=== PATIENT | female | born 1965 | race Caucasian/White ===

== ENCOUNTER 2017-11-23 09:16 | Outpatient (CLI) | payer OTHER ==
[2017-11-23] MEDS ORDERED: ISOVUE-370 76%-LOCM 1 ML ONE (11:39)
== END 2017-11-23 09:17 | disposition home or self-care (01) ==
LOC: BICCT 09:16
PROVIDERS: ATTEND Surgery
DX: K43.2 Incisional hernia without obstruction or gangrene (principal); Z90.49 Acquired absence of other specified parts of digestive tract
CPT/HCPCS: 74177

== ENCOUNTER 2018-02-01 14:31 | Outpatient (CLI) | payer OTHER | END 2018-02-01 14:32 | disposition home or self-care (01) | LOC: BICRAD 14:31 | PROVIDERS: ATTEND Family Medicine | DX: M25.551 Pain in right hip (principal); M16.11 Unilateral primary osteoarthritis, right hip ==

== ENCOUNTER 2018-02-23 13:59 | Day surgery (SDC) | payer OTHER ==
[2018-02-22 14:19] VITALS: BMI 44.5
[~2018-02-23 13:59] MED LIST: Glycopyrrolate 0.2 MG/ML 5 ML SYRINGE ONE; Lidocaine 1% PF 5 ML VIAL ONE; Ondansetron HCl/PF 4 MG/2 ML Vial ONE; PROPOFOL 200 MG/20 ML VIAL ONE; Succinylcholine Chloride 20 MG/ML 10 ml SYRINGE FS ONE
[2018-02-23] MEDS ORDERED: EPINEPHrine 1 MG/ML AMP ONE (14:28)
[2018-02-23] MEDS ORDERED: Fentanyl 100 MCG/2 ML VIAL ONE ×3 (14:30→17:37)
[2018-02-23] MEDS ORDERED: Midazolam HCl 2 mg/2 ml Vial ONE (14:30)
[2018-02-23] MEDS ORDERED: Ondansetron HCl/PF 4 MG/2 ML Vial ONE (14:31)
[2018-02-23 15:01] LABS: Anion Gap 9 mmol/L (10-20); BUN (Urea Nitrogen) 12 mg/dL (9.8-20.1); Calc. Creatinine Clearance 104 mL/min (70-130); Calcium 9.8 mg/dL (7.8-10.44); Carbon Dioxide 31 mmol/L (22-29); Chloride 101 mmol/L (98-107); Estimated GFR-MDRD 57; Glucose 100 mg/dL (70-105); Potassium 4.5 mmol/L (3.5-5.1); Sodium 136 mmol/L (136-145)
[2018-02-23] MEDS ORDERED: Propofol 500 MG/50 ML VIAL ONE (16:04)
[2018-02-23] MEDS ORDERED: Sodium Chloride For Inhalation 0.9% 3 ML NEB ONE (16:33)
--- NOTE | 2018-02-23 17:42 | RAD ---
AP VIEW CHEST: Date: 02/23/18 INDICATION: Preop. COMPARISON: Prior exam dated 04/28/16. FINDINGS: Stable mild cardiomegaly. Lungs are clear. No pleural effusion or pneumothorax evident. No acute osse ous abnormality is evident. IMPRESSION: Stable cardiomegaly. POS: [facility]
[2018-02-23] MEDS ORDERED: Hydrocodone-Acetamin 15 ML UDCUP ONE (18:11)
--- NOTE | 2018-02-23 20:32 | EKG ---
Test Reason : PREOP Blood Pressure : / mmHG Vent. Rate : 067 BPM Atrial Rate : 067 BPM P-R Int : 160 ms QRS Dur : 080 ms QT Int : 450 ms P-R-T Axes : 054 037 054 degrees QTc Int : 475 ms Normal sinus rhythm Normal ECG No previous ECGs available Confirmed by DR. Isabella RAMIREZ MD ([id number]) on 02/23/2018 8:32:17 PM Referred By: ERUM Confirmed By:DR. Isabella RAMIREZ MD
--- NOTE | 2018-02-24 12:44 | OP ---
PREOPERATIVE DIAGNOSES: Hoarseness and bilateral vocal cord lesions. POSTOPERATIVE DIAGNOSES: Hoarseness and bilateral vocal cord lesions. PROCEDURES PERFORMED: 1. Microsuspension laryngoscopy with vocal fold biopsy. 2. Rigid esophagoscopy. PROCEDURE IN DETAIL: After consent was obtained, the patient was identified, brought to the operatin g room and placed on the operating table in supine position. General endotracheal anesthesia was obt ained with the Ruth jet ventilating tube and the patient was positioned for surgery. The orophar yngeal exposure was obtained and the laryngoscope was placed. Oral cavity was systematically evaluat ed as was the oropharynx. Everything was found to be within normal limits. Hypopharyngeal examinati on is similar and was within normal limits except for some significant edema at the esophageal inlet. 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 Micro cups were used to obtain biopsies bilaterally and photograph s were obtained before and after the biopsies. The specimens were sent for histologic evaluation. T his included both anterior portions of the vocal cord, including the commissure. We removed the vini ngoscope and we proceeded with rigid esophagoscopy. The esophagus was examined all the way down to t he gastric inlet and no significant mucosal abnormalities were found and no evidence of hiatal hernia or reflux. The esophagoscope was removed. The patient was awakened, reintubated with a normal endo tracheal tube and awakened and taken to recovery room in a stable condition prior to discharge home.
== END 2018-02-23 18:50 | disposition home or self-care (01) ==
LOC: SDC 13:59
PROVIDERS: ATTEND Specialist
PROC: 0DJ08ZZ Inspection of Upper Intestinal Tract, Via Natural or Artificial Opening Endoscopic (ICD-10-PCS; principal; 2018-02-23)
PROC: 0CBT8ZX Excision of Right Vocal Cord, Via Natural or Artificial Opening Endoscopic, Diagnostic (ICD-10-PCS; principal; 2018-02-23)
PROC: 0CBV8ZX Excision of Left Vocal Cord, Via Natural or Artificial Opening Endoscopic, Diagnostic (ICD-10-PCS; principal; 2018-02-23)
DX: J38.7 Other diseases of larynx (principal); J45.909 Unspecified asthma, uncomplicated; F17.210 Nicotine dependence, cigarettes, uncomplicated; Z79.899 Other long term (current) drug therapy; Z91.018 Allergy to other foods
CPT/HCPCS: 36415; 71045; 80048; 85014; 88305; 93005; 93010; 96374; J0171; J2001; J2250; J2405; J2704; J3010; J7620

== ENCOUNTER 2022-08-17 10:44 | Inpatient (IN) | payer MEDICARE, OTHER ==
[2022-08-17 11:27] LABS: #Lymphocytes 0.5 thou/uL (1.20-3.40); #Monocytes 0.3 thou/uL (0.11-0.59); #Neutrophils 7.2 thou/uL (1.40-6.50); %Basophils 0.2 % (0.0-1.0); %Eosinophils 0.2 % (0.0-10.0); %Lymphocytes 6.5 % (21.0-51.0); %Monocytes 3.9 % (0.0-10.0); %Neutrophils 89.2 % (42.0-75.0); Hemoglobin 13.6 g/dL (12.0-16.0); Mean Corpuscular HGB CONC 32.2 g/dL (32.0-36.0); Mean Corpuscular Hemoglobin 28.5 pg (27.0-31.0); Mean Corpuscular Volume 88.5 fl (78.0-98.0); Mean Platelet Volume 8.4 fL (7.4-10.4); Platelet Count 236 10x3/uL (130-400); RBC Distribution Width 14.9 % (11.5-14.5); Red Blood Cell (RBC) Count 4.76 mill/uL (4.20-5.40)
[2022-08-17] MEDS ORDERED: Albuterol Sulfate 2.5 mg/0.5 ml Neb ONE ×3 (11:33→14:06)
[2022-08-17] MEDS ORDERED: methylPREDNISolone Sod Succ/PF 125 MG/2 ML VIAL ONE (11:42)
[2022-08-17 11:46] LABS: ALT (SGPT) 24 U/L (8-55); AST (SGOT) 31 U/L (5-34); Albumin 4.4 g/dL (3.5-5.0); Alkaline Phosphatase 97 U/L (40-110); Anion Gap 19 mmol/L (10-20); BUN (Urea Nitrogen) 18 mg/dL (9.8-20.1); Bilirubin, Total 0.8 mg/dL (0.2-1.2); Calc. Creatinine Clearance 0 mL/min (70-130); Calcium 9.2 mg/dL (7.8-10.44); Carbon Dioxide 21 mmol/L (22-29); Chloride 100 mmol/L (98-107); Estimated GFR 42; Globulin 3.5 g/dL (2.4-3.5); Glucose 138 mg/dL (70-105); Potassium 4.6 mmol/L (3.5-5.1); Protein, Total 7.9 g/dL (6.0-8.3); Sodium 135 mmol/L (136-145)
[2022-08-17] MEDS ORDERED: Magnesium 2 GM/50 ML BAG (IN WATER) ONE (11:48)
[2022-08-17] MEDS ORDERED: Acetaminophen 500 MG TAB ONE (12:02)
[2022-08-17 12:07] LABS: CKMB 4.5 ng/mL (0-6.6)
[2022-08-17] MEDS ORDERED: Albuterol Sulfate 2.5 mg/3 ml Neb ONE (12:50)
[2022-08-17 15:08] LABS: SARS-CoV-2 NAA Rapid Test Not Detected (NotDetected)
[2022-08-17] MEDS ORDERED: Senokot S 8.6-50 MG TAB PO PRN (15:55)
[2022-08-17] MEDS ORDERED: Acetaminophen 325 MG TAB PO PRN (15:55)
[2022-08-17] MEDS ORDERED: Furosemide 40 MG/4 ML VIAL SLOW IVP SCH (16:00)
[2022-08-17] MEDS: cefTRIAXone\\ROCEPHIN 1 GM in Sodium Chloride 0.9% 100 ML IVPB SCH (17:00)
[2022-08-17 17:29] LABS: Calcium 9.1 mg/dL (7.8-10.44); Magnesium 2.4 mg/dL (1.6-2.6)
[2022-08-17] MEDS ORDERED: cefTRIAXone\\ROCEPHIN 1 GM VIAL ONE (17:39)
[2022-08-17] MEDS ORDERED: HYDROcodone/Acetaminophen 7.5/325 mg Tablet ONE (19:46)
[2022-08-17] MEDS: HYDROcodone/Acetaminophen 7.5/325 mg Tablet PO PRN (19:48)
[2022-08-17] MEDS ORDERED: traZODone HCl 50 MG TAB ONE (20:59)
[2022-08-17] MEDS ORDERED: Famotidine/PF 20 mg/2ml Vial ONE (20:59)
[2022-08-17] MEDS ORDERED: Carvedilol 3.125 MG TAB PO SCH (21:00)
[2022-08-17] MEDS ORDERED: Heparin 10,000 UNITS/ 10 ML VIAL ONE (21:29)
[2022-08-17] MEDS: Doxycycline 100 MG CAP PO SCH (22:09)
[2022-08-17] MEDS: Famotidine/PF 20 mg/2ml Vial SLOW IVP SCH (22:09)
[2022-08-17] MEDS: Carvedilol 3.125 MG TAB PO SCH (22:09)
[2022-08-17] MEDS: traZODone HCl 50 MG TAB PO SCH (22:10)
[2022-08-17] MEDS: methylPREDNISolone Sod Succ 40 MG VIAL IVP SCH (22:10)
[2022-08-17] MEDS: Heparin 5,000 UNITS/ML VIAL SC SCH (22:10)
[2022-08-17] MEDS ORDERED: methylPREDNISolone Sod Succ 40 MG VIAL ONE (22:17)
[2022-08-17 22:43] LABS: Troponin I 0.093 ng/mL (< 0.028)
[2022-08-18 00:08] VITALS: BMI 44.6
[2022-08-18] MEDS: HYDROcodone/Acetaminophen 7.5/325 mg Tablet PO PRN (04:57)
[2022-08-18] MEDS: methylPREDNISolone Sod Succ 40 MG VIAL IVP SCH ×3 (04:58→20:40)
[2022-08-18 04:59] LABS: #Lymphocytes 0.6 thou/uL (1.20-3.40); #Monocytes 0.2 thou/uL (0.11-0.59); #Neutrophils 4.8 thou/uL (1.40-6.50); %Basophils 0.3 % (0.0-1.0); %Eosinophils 0.2 % (0.0-10.0); %Lymphocytes 9.9 % (21.0-51.0); %Monocytes 2.7 % (0.0-10.0); %Neutrophils 86.9 % (42.0-75.0); Hemoglobin 11.3 g/dL (12.0-16.0); Mean Corpuscular HGB CONC 32.3 g/dL (32.0-36.0); Mean Corpuscular Hemoglobin 28.6 pg (27.0-31.0); Mean Corpuscular Volume 88.3 fl (78.0-98.0); Mean Platelet Volume 8.1 fL (7.4-10.4); Platelet Count 215 10x3/uL (130-400); RBC Distribution Width 14.9 % (11.5-14.5); Red Blood Cell (RBC) Count 3.94 mill/uL (4.20-5.40); White Blood Cell (WBC) Count 5.5 10x3/uL (4.8-10.8)
[2022-08-18] MEDS: Guaifenesin DM 100-10/5 ML UDCUP PO PRN ×3 (05:05→20:41)
[2022-08-18 05:17] LABS: ALT (SGPT) 30 U/L (8-55); AST (SGOT) 40 U/L (5-34); Albumin 3.9 g/dL (3.5-5.0); Alkaline Phosphatase 79 U/L (40-110); Anion Gap 15 mmol/L (10-20); BUN (Urea Nitrogen) 24 mg/dL (9.8-20.1); Bilirubin, Total 0.5 mg/dL (0.2-1.2); Calc. Creatinine Clearance 71 mL/min (70-130); Carbon Dioxide 24 mmol/L (22-29); Chloride 101 mmol/L (98-107); Estimated GFR 43; Globulin 3.1 g/dL (2.4-3.5); Glucose 128 mg/dL (70-105); Sodium 135 mmol/L (136-145)
[2022-08-18] MEDS ORDERED: Non-Formulary Item 1 EACH (Tiotropium [Spiriva Handihaler] 18 MCG Box) INH SCH (09:00)
[2022-08-18] MEDS: Doxycycline 100 MG CAP PO SCH ×2 (09:38→20:40)
[2022-08-18] MEDS: Carvedilol 3.125 MG TAB PO SCH ×2 (09:38→20:40)
[2022-08-18] MEDS: Aspirin Chewable 81 MG TAB PO SCH (09:38)
[2022-08-18] MEDS: Lisinopril 10 MG TAB PO SCH (09:38)
[2022-08-18] MEDS: Heparin 5,000 UNITS/ML VIAL SC SCH ×3 (09:38→20:40)
[2022-08-18] MEDS: Famotidine/PF 20 mg/2ml Vial SLOW IVP SCH ×2 (09:38→20:40)
[2022-08-18] MEDS: Furosemide 40 MG/4 ML VIAL SLOW IVP SCH (09:38)
[2022-08-18] MEDS: cefTRIAXone\\ROCEPHIN 1 GM in Sodium Chloride 0.9% 100 ML IVPB SCH (17:00)
[2022-08-18] MEDS: Nicotine 21 MG PATCH TD SCH (17:50)
[2022-08-18] MEDS: traZODone HCl 50 MG TAB PO SCH (20:40)
[2022-08-19] MEDS: Guaifenesin DM 100-10/5 ML UDCUP PO PRN ×4 (00:54→21:19)
[2022-08-19 04:16] LABS: #Lymphocytes 0.8 thou/uL (1.20-3.40); #Monocytes 0.3 thou/uL (0.11-0.59); #Neutrophils 7.7 thou/uL (1.40-6.50); %Eosinophils 0.1 % (0.0-10.0); %Lymphocytes 9.5 % (21.0-51.0); %Monocytes 3.1 % (0.0-10.0); %Neutrophils 87.2 % (42.0-75.0); Hemoglobin 10.8 g/dL (12.0-16.0); Mean Corpuscular HGB CONC 31.6 g/dL (32.0-36.0); Mean Corpuscular Hemoglobin 28.3 pg (27.0-31.0); Mean Corpuscular Volume 89.6 fl (78.0-98.0); Mean Platelet Volume 8.6 fL (7.4-10.4); Platelet Count 234 10x3/uL (130-400); RBC Distribution Width 14.8 % (11.5-14.5); Red Blood Cell (RBC) Count 3.82 mill/uL (4.20-5.40); White Blood Cell (WBC) Count 8.9 10x3/uL (4.8-10.8)
[2022-08-19 04:41] LABS: Anion Gap 10 mmol/L (10-20); BUN (Urea Nitrogen) 39 mg/dL (9.8-20.1); Calc. Creatinine Clearance 53 mL/min (70-130); Carbon Dioxide 30 mmol/L (22-29); Chloride 101 mmol/L (98-107); Estimated GFR 31; Glucose 119 mg/dL (70-105); Potassium 5.5 mmol/L (3.5-5.1); Sodium 135 mmol/L (136-145)
[2022-08-19] MEDS: methylPREDNISolone Sod Succ 40 MG VIAL IVP SCH ×3 (05:29→21:19)
[2022-08-19] MEDS: Doxycycline 100 MG CAP PO SCH ×2 (09:29→21:20)
[2022-08-19] MEDS: Lisinopril 10 MG TAB PO SCH (09:29)
[2022-08-19] MEDS: Carvedilol 3.125 MG TAB PO SCH ×2 (09:29→21:20)
[2022-08-19] MEDS: Aspirin Chewable 81 MG TAB PO SCH (09:29)
[2022-08-19] MEDS: Famotidine/PF 20 mg/2ml Vial SLOW IVP SCH (09:30)
[2022-08-19] MEDS: Furosemide 40 MG/4 ML VIAL SLOW IVP SCH (09:31)
[2022-08-19] MEDS: Heparin 5,000 UNITS/ML VIAL SC SCH ×3 (09:33→21:20)
[2022-08-19] MEDS: HYDROcodone/Acetaminophen 7.5/325 mg Tablet PO PRN ×3 (09:40→21:20)
[2022-08-19] MEDS ORDERED: Lisinopril 10 MG TAB PO SCH (13:23)
[2022-08-19] MEDS: cefTRIAXone\\ROCEPHIN 1 GM in Sodium Chloride 0.9% 100 ML IVPB SCH (15:06)
[2022-08-19] MEDS: Nicotine 21 MG PATCH TD SCH (17:37)
[2022-08-19] MEDS ORDERED: Famotidine/PF 20 mg/2ml Vial SLOW IVP SCH (21:00)
[2022-08-19] MEDS: traZODone HCl 50 MG TAB PO SCH (21:21)
[2022-08-20 04:41] LABS: #Lymphocytes 0.8 thou/uL (1.20-3.40); #Monocytes 0.2 thou/uL (0.11-0.59); #Neutrophils 6.1 thou/uL (1.40-6.50); %Basophils 0.1 % (0.0-1.0); %Eosinophils 0.1 % (0.0-10.0); %Lymphocytes 11.4 % (21.0-51.0); %Monocytes 2.6 % (0.0-10.0); %Neutrophils 85.8 % (42.0-75.0); Hemoglobin 11.7 g/dL (12.0-16.0); Mean Corpuscular HGB CONC 31.4 g/dL (32.0-36.0); Mean Corpuscular Hemoglobin 28.5 pg (27.0-31.0); Mean Corpuscular Volume 90.6 fl (78.0-98.0); Mean Platelet Volume 8.8 fL (7.4-10.4); Platelet Count 235 10x3/uL (130-400); Red Blood Cell (RBC) Count 4.12 mill/uL (4.20-5.40); White Blood Cell (WBC) Count 7.1 10x3/uL (4.8-10.8)
[2022-08-20] MEDS: methylPREDNISolone Sod Succ 40 MG VIAL IVP SCH (05:14)
[2022-08-20 05:15] LABS: Anion Gap 15 mmol/L (10-20); BUN (Urea Nitrogen) 57 mg/dL (9.8-20.1); Calc. Creatinine Clearance 48 mL/min (70-130); Calcium 8.8 mg/dL (7.8-10.44); Carbon Dioxide 28 mmol/L (22-29); Chloride 101 mmol/L (98-107); Estimated GFR 27; Glucose 125 mg/dL (70-105); Potassium 4.6 mmol/L (3.5-5.1); Sodium 139 mmol/L (136-145)
[2022-08-20] MEDS: Cefdinir 300 MG CAP PO SCH ×2 (09:30→20:35)
[2022-08-20] MEDS: Aspirin Chewable 81 MG TAB PO SCH (09:30)
[2022-08-20] MEDS: Carvedilol 3.125 MG TAB PO SCH ×2 (09:30→20:35)
[2022-08-20] MEDS: Lisinopril 10 MG TAB PO SCH (09:30)
[2022-08-20] MEDS: Guaifenesin DM 100-10/5 ML UDCUP PO PRN ×2 (09:31→20:36)
[2022-08-20] MEDS: Furosemide 40 MG/4 ML VIAL SLOW IVP SCH (09:31)
[2022-08-20] MEDS: Heparin 5,000 UNITS/ML VIAL SC SCH ×3 (09:39→20:35)
[2022-08-20] MEDS: HYDROcodone/Acetaminophen 7.5/325 mg Tablet PO PRN ×2 (11:19→20:35)
[2022-08-20] MEDS: Nicotine 21 MG PATCH TD SCH (17:45)
[2022-08-20] MEDS: traZODone HCl 50 MG TAB PO SCH (20:35)
[2022-08-20] MEDS ORDERED: Famotidine 20 MG TAB PO SCH (21:00)
[2022-08-21] MEDS: Guaifenesin DM 100-10/5 ML UDCUP PO PRN (00:42)
[2022-08-21] MEDS ORDERED: Furosemide 40 MG TAB PO SCH (07:30)
[2022-08-21] MEDS ORDERED: predniSONE 50 MG TAB PO SCH (08:00)
[2022-08-21] MEDS: Carvedilol 3.125 MG TAB PO SCH (09:18)
[2022-08-21] MEDS: Aspirin Chewable 81 MG TAB PO SCH (09:18)
[2022-08-21] MEDS: Lisinopril 10 MG TAB PO SCH (09:19)
[2022-08-21] MEDS: Cefdinir 300 MG CAP PO SCH (09:19)
[2022-08-21] MEDS: Heparin 5,000 UNITS/ML VIAL SC SCH ×2 (09:21→14:46)
[2022-08-21 13:37] VITALS: TEMP 96.5
[2022-08-21] MEDS ORDERED: Calcium Carbonate 500 MG ChewTAB PO PRN (14:47)
[2022-08-21 17:31] VITALS: BP 142/77
[2022-08-21] MEDS: Nicotine 21 MG PATCH TD SCH (18:08)
== END 2022-08-21 18:46 | disposition home or self-care (01) | DRG 280 ==
LOC: ERS 10:44 → ERHOLD 14:26 → 2NO 23:35
PROVIDERS: ADMIT Student in an Organized Health Care Education/Training Program; ATTEND Internal Medicine
DX: I13.0 Hypertensive heart and chronic kidney disease with heart failure and stage 1 through stage 4 chronic kidney disease, or unspecified chronic kidney disease (principal); I21.A1 Myocardial infarction type 2; I50.33 Acute on chronic diastolic (congestive) heart failure; J96.01 Acute respiratory failure with hypoxia; J44.1 Chronic obstructive pulmonary disease with (acute) exacerbation; Z68.42 Body mass index [BMI] 45.0-49.9, adult; F17.210 Nicotine dependence, cigarettes, uncomplicated; N18.30 Chronic kidney disease, stage 3 unspecified; I25.10 Atherosclerotic heart disease of native coronary artery without angina pectoris; E66.01 Morbid (severe) obesity due to excess calories; Z20.822 Contact with and (suspected) exposure to COVID-19; Z91.018 Allergy to other foods; Z79.899 Other long term (current) drug therapy; Z90.49 Acquired absence of other specified parts of digestive tract
CPT/HCPCS: 36415; 71045; 80048; 80053; 82550; 82553; 83735; 83880; 84443; 84484; 85025; 87040; 90471; 90732; 93005; 93306; 93798; 94640; 94660; 94760; G0009; J0696; J1644; J1940; J2920; J2930; J3475; J3490; J7512; J7611; J7620; S0028

== ENCOUNTER 2022-12-08 13:56 | Outpatient (CLI) | payer MEDICARE | END 2022-12-08 13:57 | disposition home or self-care (01) | LOC: MRI 13:56 | PROVIDERS: ATTEND Family Medicine | DX: M48.061 Spinal stenosis, lumbar region without neurogenic claudication (principal) | CPT/HCPCS: 72148 ==

== ENCOUNTER 2023-05-12 11:05 | Outpatient (CLI) | payer MEDICARE | END 2023-05-12 11:06 | disposition home or self-care (01) | LOC: RAD 11:05 | PROVIDERS: ATTEND Internal Medicine Critical Care Medicine | DX: J44.9 Chronic obstructive pulmonary disease, unspecified (principal) | CPT/HCPCS: 71046 ==